=== PATIENT | female | born 1940 | race Caucasian/White ===

== ENCOUNTER → 2017-07-14 13:16 | Outpatient (CLI) | payer MEDICARE, OTHER, SELFPAY ==
--- NOTE | 2017-07-14 | DI.CT.S_ITS ---
PROCEDURE: CT HEAD/BRAIN WO CON INDICATIONS: RECENT FALL/DIZZINESS TECHNIQUE: Noncontrast 4.5 mm thick angled axial sections acquired from the foramen magnum to the vertex, with coronal and sagittal reformats. For radiation dose reduction, the following was used: automated exposure control, adjustment of mA and/or kV according to patient size. COMPARISON: None. FINDINGS: Image quality: Excellent. CSF spaces: Basal cisterns are patent. No extra-axial fluid collections. The ventricles are symmetric in size and shape. Brain: No intracranial bleeds or masses. There is cerebral volume loss for age, with resultant ventricular and sulcal prominence. There are periventricular and deep white matter chronic small vessel ischemic changes. There is intracranial internal carotid artery atherosclerosis. Skull and face: Calvarium and visualized facial bones appear intact, without suspicious lesions. Sinuses: Visualized sinuses and mastoids are clear. IMPRESSION: 1. No acute intracranial process. 2. Moderate atrophy and chronic microvascular ischemic changes. Dictated by: Tatum Maya M.D. on 07/14/2017 at 13:11 Approved by: Tatum Maya M.D. on 07/14/2017 at 13:18
== END ==
PROVIDERS: PCP Family Medicine; Visit Provider Internal Medicine
DX: R42 Dizziness and giddiness (principal)
CPT/HCPCS: 70450

== ENCOUNTER → 2017-11-18 16:18 | Outpatient (CLI) | payer MEDICARE, OTHER, SELFPAY ==
--- NOTE | 2017-11-18 | DI.MRI.S_ITS ---
PROCEDURE: MR PELVIS WO CON INDICATIONS: LOW BACK PAIN TECHNIQUE: Noncontrast coronal and axial T1 spin echo and STIR through the bony pelvis. COMPARISON: [facility] [place], CR, XR SACRUM AND COCCYX, 11/05/2017, 10:21. FINDINGS: Image quality: Excellent. Bones: Ill-defined linear low T1/high external signal intensity traverses the right and left sacral alae. Severe ill-defined T2 signal elevation within the right acetabulum and right femoral head and neck is present, as well as subchondral cyst formation within the acetabulum and femoral head, consistent with degenerative marrow edema. These findings may obscuring underlying fracture. The visualized lower lumbar spine appears normally aligned. Tendons: The gluteus medius and minimus tendons appear intact, without associated muscle atrophy. The nearby proximal iliotibial band also appears intact. The iliopsoas tendon appears intact, without adjacent bursal fluid collections or evidence for impingement syndrome. The origin of the hamstring tendon is intact at the ischial tuberosity, as well as the associated sacrotuberous ligament. The straight and reflected heads of the rectus femoris muscle origin appear intact, as well as the conjoint tendon. Soft tissues: Visualized muscles demonstrate normal bulk and internal signal. No joint effusions. No free pelvic fluid. Bladder wall thickness is normal. Genitourinary structures and bowel loops appear normal where visualized. IMPRESSION: 1. Bilateral sacral insufficiency fracture. 2. Severe right hip osteoarthritis with extensive surrounding degenerative signal. If there is clinical evidence for right hip fracture, CT may be helpful for further assessment. Dictated by: Rehan Ghosh M.D. on 11/18/2017 at 16:58 Approved by: Rehan Ghosh M.D. on 11/18/2017 at 17:01
--- NOTE | 2017-11-18 | DI.MRI.S_ITS ---
PROCEDURE: MR LUMBAR SPINE WO CON INDICATIONS: LOW BACK PAIN TECHNIQUE: Noncontrast sagittal T1 spin echo and T2 fast echo, sagittal STIR, axial T1 and T2 fast spin echo through the lumbar spine. In this patient, coronal T2-weighted images were also performed. COMPARISON: None. FINDINGS: Image quality: Excellent. Alignment and Curvature: S-shaped scoliotic curvature is seen. Grade 1 anterolisthesis is seen at the L2-L3 and L3-L4 levels. Mild grade 1 retrolisthesis is seen at L4-L5. Bone Marrow: Marrow is of normal overall signal. No acute vertebral body compression fractures. Spinal Cord: Conus medullaris terminates at the T1 level. Visualized cord demonstrates normal signal and size. Paraspinous Soft Tissues: No paravertebral masses. T12-L1: The disc height is well-preserved. Loss of disc signal is seen at this level. Mild disc bulge is seen, which is eccentric to the right. There is moderate bilateral neural foraminal narrowing seen, right worse than left. Mild central canal narrowing is seen. L1-L2: Moderate loss of disc height is seen. Loss of disc signal is seen. Endplate irregularity is seen. Mild to moderate disc bulge is seen at this level. Moderate facet joint hypertrophy is seen. There is mild to moderate right-sided and no significant left-sided neural foraminal narrowing seen. Moderate central canal narrowing is seen. L2-L3: At least moderate loss of disc height is seen on the left side. Loss of disc signal is seen. Moderate generalized disc bulge is seen. Moderate to prominent facet hypertrophy is seen at this level. There is mild to moderate left-sided and minimal right-sided neural foraminal narrowing seen. Moderate to severe central canal narrowing is seen at this level. L3-L4: There is at least moderate loss of disc height seen on the left. Loss of disc signal is seen. Along the posterior aspect of the annulus fibrosis, there is an annular fissure seen. Moderate to prominent disc bulge is seen, which is eccentric to the left. Moderate to prominent facet hypertrophy is seen. There is moderate to severe left-sided neural foraminal narrowing seen, with a mild degree of mass effect upon the exiting left L3 nerve root. No significant right-sided neural foraminal narrowing is seen. Moderate to severe central canal narrowing is seen at this level. L4-L5: Moderate to severe loss of disc height and disc signal are seen in moderate to prominent disc bulge is seen at this level. Moderate bilateral neural foraminal narrowing is seen at this level, right worse than left. Moderate central canal narrowing is seen. L5-S1: The disc height is well-preserved. Loss of disc signal is seen at this level. Mild disc bulge is seen at this level. There is an annular fissure seen posteriorly. Mild to moderate facet hypertrophy is seen. There is moderate right-sided and mild left-sided nerve narrowing seen. Mild to moderate central canal narrowing is seen. Several perineural cysts (Tarlov's cysts) can be seen, including at the T10-T11, T12-L1, L5, S1, and S2 levels. IMPRESSION: S-shaped scoliosis, with associated degenerative changes. Moderate to severe central canal narrowing is seen at L2-L3 and L3-L4. Moderate to severe left-sided neural foraminal narrowing is seen at L3-L4 level. Dictated by: Selvin Soler M.D. on 11/18/2017 at 16:56 Approved by: Selvin Soler M.D. on 11/18/2017 at 17:05
== END ==
PROVIDERS: Family Provider Family Medicine; PCP Family Medicine; Visit Provider Physical Medicine & Rehabilitation
DX: M84.48XA Pathological fracture, other site, initial encounter for fracture (principal); M48.061 Spinal stenosis, lumbar region without neurogenic claudication; M16.11 Unilateral primary osteoarthritis, right hip; M51.26 Other intervertebral disc displacement, lumbar region; M51.27 Other intervertebral disc displacement, lumbosacral region; M41.9 Scoliosis, unspecified
CPT/HCPCS: 72148; 72195

== ENCOUNTER 2018-02-26 06:05 | Inpatient (IN) | payer MEDICARE, OTHER, SELFPAY ==
[2018-02-01 13:17] VITALS: BMI 18.8
[2018-02-26] VITALS (17 sets, daily range): BP systolic 116–159; BP diastolic 69–99; PULSE 51–65; RESP 12–18; TEMP 36.3–36.9; O2SAT 87–99; BMI 18.8
--- NOTE | 2018-02-26 | DI.RAD.S_ITS ---
PROCEDURE: XR PELVIS 1-2V INDICATIONS: RIGHT TKA TECHNIQUE: Intra-operative view of the pelvis and hip acquired. COMPARISON: [facility], CR, XR HIP W PEL IF DONE RT 2V, 02/26/2018, 12:02. FINDINGS: Bones: Intraoperative devices prior to placement of arthroplasty prostheses are in expected positions. No fractures or suspicious bony lesions. Soft tissues: Overlying surgical retractors are present, along with other intraoperative changes. IMPRESSION: Right hip prosthesis in anatomic alignment. Dictated by: Marcelo See M.D. on 02/26/2018 at 13:39 Approved by: Marcelo See M.D. on 02/26/2018 at 13:40
--- NOTE | 2018-02-26 06:00 | DI.RAD.S_ITS ---
PROCEDURE: XR HIP W PEL IF DONE RT 2V INDICATIONS: prosthesis placement TECHNIQUE: 2 views of the hip were acquired. COMPARISON: [facility], , XR PELVIS 1-2V, 02/26/2018, 9:44. FINDINGS: Bones: Postoperative changes of the reticular present related to the recent right hip arthroplasty. The metallic prostatic components appear to be properly seated with no periprosthetic fracture. No suspicious osseous lesions or fractures involving the remainder of the included pelvic structures are evident. There are degenerative changes of the included lumbosacral spine, pubis symphysis, and left hip, not well characterized. Soft tissues: No suspicious soft tissue calcifications or masses. Small ovoid foci of increased attenuation are seen within the pelvis, which may represent structures within the bowel. Expected postoperative changes within the soft tissues overlying the right hip are present with areas of soft tissue edema and air. No unexpected radiopaque foreign bodies are seen. IMPRESSION: Expected post surgical changes related to a right hip arthroplasty. Dictated by: Bryan Parmar M.D. on 02/26/2018 at 11:08 Approved by: Bryan Parmar M.D. on 02/26/2018 at 11:09
[2018-02-26] MEDS: VANCOMYCIN 1,000 MG/200 ML FROZ.PIGGY 200 MG IV (06:50)
[2018-02-26] MEDS: LACTATED RINGERS 1,000 ML 42 ML IV ×2 (07:00→09:22)
[2018-02-26] MEDS: ACETAMINOPHEN 325 MG TABLET 975 MG PO ×3 (07:17→20:19)
[2018-02-26] MEDS: CELECOXIB 200 MG CAPSULE PO (07:17)
[2018-02-26] MEDS: PREGABALIN 75 MG CAPSULE PO (07:17)
--- NOTE | 2018-02-26 07:51 | PM.PREOP ---
Pre-operative Note Interval Note History & Physical reviewed/Exam performed by Physician: Yes Changes to H&P: No
--- NOTE | 2018-02-26 07:51 | PM.OP.1 ---
Operative Date/Time/Diagnoses Date of procedure: 02/26/18 Time of procedure: 07:52 Pre-op diagnosis: right hip OA Post-op diagnosis: same Procedure & Clinicians Procedure: right total hip arthroplasty Same procedure as scheduled: Yes Indications: The patient has had progressively worsening right hip pain with radiographic changes consistent with arthritis. Non-operative management has failed and the patient has requested total hip replacement. The risks, benefits and alternatives to surgery were discussed with the patient prior to proceeding. Risks discussed included, but were not limited to, failure to relieve pain, leg length discrepancy, dislocation, stiffness, infection, nerve damage, deep venous thrombosis, pulmonary embolism, stroke, coma, heart attack, permanent paralysis and , as well as the potential need for eventual revision of the prosthetic. Surgeon: Margo Brown Score Caller: Rasheeda Hurley Anesthesia Type: General and Spinal Operative Notes Findings: Severe right hip osteoarthritis, soft bone, good stability Closure Type: primary Specimen(s): none sent Implants & Drains: [employer]hew R3 56, size 6 standard anthology, +0 by 36 Estimated Blood Loss (mL): 250 Blood products transfused: none Procedure in detail: The patient was brought to the operating room. Patient was carefully positioned in the supine position. Time-out was performed and antibiotics were given. Anesthesia was induced. She was positioned in the on the table in order to allow hyperextension of the hip. Bilateral lower extremities were prepped and draped in a standard sterile fashion. An anterior right hip incision was made 1 fingerbreadth lateral to the anterior superior iliac spine and extended distally towards the greater trochanter. Dissection was carried out through skin and subcutaneous tissues. The skin and subcutaneous tissues were carefully injected with Lidocaine with epi. Superficial hemostasis was achieved. The fascia over the tensor fascia karo was defined and incised with a knife. Two Allis clamps were used to grasp the fascia. Tensor fascia karo was retracted laterally. A gelpi retractor was placed. Dissection was carried out down along the neck. The circumflex vessels were carefully identified and cauterized with the Aqua Mantis. There was good visualization of the femoral neck. A Cobra was placed superior to the neck and the gluteus fibers were carefully stripped from that superior aspect of the capsule. A 2nd retractor was placed along the inferior aspect of the neck. The rectus insertion along the capsule was partially released. A 3rd retractor that was then gently placed over the rim of the acetabulum under the rectus. Capsule was carefully incised and released from the intertrochanteric line circumferentially superior to the mid sagittal line and inferiorly to the mid sagittal line until the lesser trochanter was palpable. A tag stitch was placed both in the superior and inferior limb of the capsular insertion. Along the acetabulum capsule was also released up to the mid sagittal 12:00 position. A portion of the labrum was resected. A saw was used to perform an osteotomy at the level of the intertrochanteric line and the junction of the superior femoral neck leaving approximately 1 finger breath of residual inferior neck above the lesser trochanter. A 2nd cut was made along the femoral neck at the base of the head and a napkin ring of neck was removed. Corkscrew was placed in the femoral head and the head was removed without difficulty. Retractors were then repositioned around the acetabulum. Residual labrum was resected and additional osteophytes were removed. A reamer that was 4 mm below the templated size was placed by hand in the acetabulum and it was reamed to centralize the acetabulum. It was then reamed up to 2 under the templated size and fluoroscopy was brought in to confirm the position of the reaming and depth of reaming. I reamed 1 under the anticipated size and touched the rim with line to line reaming. A trial cup was placed and noted that it was appropriately sized and fluoroscopy confirmed position and depth. The component was open and inserted without difficulty fluoroscopic imaging was used to confirm that the cup had been adequately seated and was well positioned. Neutral poly trial liner was placed. The cup was tested and noted to be stable. Attention was then directed to the femur. The femur was gently hyperextended additional capsular release was performed as needed in order to allow adequate visualization of the proximal femur with elevation of the femur. Patient was placed in a hyperextended slightly adducted position with maximum external rotation. Box osteotome was used to check for any residual neck as well as sclerotic bone along the trochanter. [place]head pepper was placed in the femur. Additional broaching was performed. Canal finder was used to determine the alignment of the canal and position. Size 1 broach was placed by hand. The canal was then appropriately broached up to the templated size as long as there was adequate stability of the broach and serial advancement of the broach without excessive impingement. Specific attention was directed at avoiding varus attempting to direct the distal aspect of the broach more anteriorly and avoiding excessive anteversion. Trial reduction showed acceptable range of motion, good stability, no posterior impingement, muslim of leg length and appropriate lateral shuck. I also hyperflexed the hip and checked that there was no impingement anteriorly and there was good stability with flexion, abduction and internal rotation. Final neutral poly was placed without difficulty. Marcaine and Exparel were injected.. The stem was placed without difficulty. Repeat trial reduction and x-ray showed acceptable overall position, length, and no evidence of the femoral fracture. Final head was placed. Wound was meticulously irrigated with normal saline. The hip was reduced and additional Exparel and Marcaine were injected. The capsule was closed with interrupted nonabsorbable sutures. The fascia of the tensor was closed with interrupted and running Vicryl. No drain was placed. Any tensor fascia karo muscle that appeared to be contused or injured which was a minimal amount was carefully resected. Capsule around the tensor was injected with Exparel and Marcaine. The skin was closed with barbed stitches for the subcutaneous tissue and skin. We also used surgical glue. The wound was dressed sterilely. Brief Betadine soak was also used and was meticulously irrigated with normal saline. Patient was transferred to recovery room in satisfactory condition. Complications: none Condition: stable Disposition: Acute Care Plan for aftercare: The patient will be maintained on a standard total hip replacement protocol with weight bearing as tolerated and anterior hip precautions. The patient will receive Aspirin and sequential compression devices for DVT prophylaxis. The patient will be discharged home when safe for the home environment.
[2018-02-26] MEDS: CEFAZOLIN 2 GM/100 ML FROZ.PIGGY IV ×3 (07:58→23:46)
--- NOTE | 2018-02-26 09:11 | SUR.OPER ---
Supine, head on pillow, torso on pink pad positioner. Iliac crest at flex of foot end of table. Gel roll under operative hip. Both arms secured on arm boards <90 degrees abduction.
[2018-02-26] MEDS: LIDOCAINE 1% W/EPI INJ 20 ML INJ (09:23)
[2018-02-26] MEDS: BUPIVACAINE 0.25% W/ EPI VIAL 50 ML INJ (09:24)
[2018-02-26] MEDS: BUPIVACAINE LIPOSOME 266 MG/20 ML VIAL INJ (09:30)
--- NOTE | 2018-02-26 12:06 | SUR.PHASEI ---
Report called to Jerald.
--- NOTE | 2018-02-26 12:34 | SUR.PHASEI ---
Pt transferred to floor with o2. Report to Jerald. VS stable. IV saline locked. Rt hip drsg cdi. +pp x2, ble warm, pink. Belonging bag in room.
[2018-02-26] MEDS: LACTATED RINGERS 1,000 ML 125 ML IV ×2 (13:00→20:52)
[2018-02-26] MEDS: HYDROCODONE/ACET 10/325 TABLET 1.5 TAB PO (14:37)
[2018-02-26] MEDS: ONDANSETRON 4 MG/2 ML INJ IV ×2 (14:42→17:30)
[2018-02-26] MEDS: NITROFURANTOIN 50 MG CAPSULE PO ×3 (14:42→20:19)
--- NOTE | 2018-02-26 14:59 | PC.ADMIT ---
[address] [facility] Admission Note: patient admitted to 204 from pacu at 1215; awake, conversant, denies pain, s/p duramorph spinal. sensation at iliac crest and sensation to bl feet, but not to the rest of her legs. wiggles toes. pedal pulses palpable. denies nausea, mild nausea at 1445. had been tolerating fluids and chix noodle soup. The patient,Jo Ann Vargas,77 y/o, was given written information regarding hospital policies, unit procedures and contact persons. Patient's smoking status: Current some day smoker. Vital Signs - 8 hr 02/26/18 07:05 02/26/18 07:17 02/26/18 11:30 Temperature 98.4 F 98.4 F 97.6 F Pulse Rate 56 L 51 L Respiratory Rate 14 12 Blood Pressure 159/85 H 121/71 Pulse Oximetry 93 99 02/26/18 11:34 02/26/18 11:40 02/26/18 11:45 Temperature Pulse Rate 57 L 56 L 60 Respiratory Rate 12 14 16 Blood Pressure 116/69 133/76 122/73 Pulse Oximetry 93 98 95 02/26/18 11:49 02/26/18 11:59 02/26/18 12:06 Temperature Pulse Rate 63 65 Respiratory Rate 18 13 Blood Pressure 130/77 130/76 Pulse Oximetry 87 L 97 95 02/26/18 12:30 02/26/18 12:31 02/26/18 13:00 Temperature 97.3 F L 97.3 F L 97.6 F Pulse Rate 59 L 59 L 60 Respiratory Rate 14 14 16 Blood Pressure 128/76 128/76 121/76 Pulse Oximetry 97 97 95 02/26/18 13:40 02/26/18 14:23 Temperature 97.6 F 98.4 F Pulse Rate 60 62 Respiratory Rate 16 17 Blood Pressure 120/73 134/99 H Pulse Oximetry 95 92
--- NOTE | 2018-02-26 15:47 | PT.IIE ---
Current Diagnoses Other psychoactive substance use, unspecified, uncomplicated (02/26/18) Major depressive disorder, single episode, unspecified (02/26/18) Generalized anxiety disorder (02/26/18) Cerebral infarction, unspecified (02/26/18) Unilateral primary osteoarthritis, right hip (02/26/18) Other amnesia (02/26/18) Personal history of other mental and behavioral disorders (02/26/18) Surgery Performed Operation Date: 02/26/18 07:45 Actual Procedures p Total Hip Arthroplasty/Anterior Approach(Right) - Margo Brown MD Surgical History (Last Updated 02/01/18 @ 14:44 by Dot Betancourt, RN) Colostomy status (Acute ~01/2014) History of cholecystectomy (Acute) History of tonsillectomy (Acute) Medical History (Last Updated 02/01/18 @ 15:31 by Dot Betancourt, RN) Abdominal pain, chronic, epigastric (Acute) Abnormal EKG (Acute) Acute diverticulitis (Acute ~2013) Barretts esophagus (Acute) Cardiomyopathy, hypertrophic (Acute ~2013) Cataract fragments in both eyes following surgery (Acute) Chronic, continuous use of opioids (Acute) Constipation (Acute) Decubitus ulcer, buttock (Acute) Depression (Acute) Drug use disorder (Acute ~08/21/17) Emphysema lung (Acute) Essential hypertension, benign (Acute) Fractured coccyx (Acute) GERD (gastroesophageal reflux disease) (Acute) Gastritis (Acute ~07/2014) Generalized anxiety disorder (Acute) History of anxiety (Acute) History of hysterectomy (Acute) History of pneumonia (Acute) History of sepsis (Acute) Injury of head (Acute) Interstitial lung disease (Acute) Macular degeneration (Acute) Malnutrition (Acute) Memory loss (Acute) Muscle weakness (generalized) (Acute) Nausea (Acute) Neoplasm of uncertain behavior of skin (Acute) Osteoarthritis of right hip (Acute) Osteoarthritis of right lower extremity (Acute) Patellofemoral joint pain (Acute) Perforated sigmoid colon (Acute) Pleural nodule (Acute) Postmenopausal (Acute) Pulmonary fibrosis (Acute) Pulmonary hypertension (Acute) Spinal stenosis (Acute) Stroke (Acute) Tingling (Acute) Tremor (Acute) Ulcer (Acute) Vision disorder (Acute) Physical Therapy Inpatient Evaluation/Re-Eval M1 PT/OT-IP Prior Functional Status Start: 02/26/18 17:01 Freq: NEEDED Status: Active Protocol: Document 02/26/18 15:47 AB (Rec: 02/26/18 17:32 AB [id number]) Medical Review Prior Functional Status Medical History Reviewed Yes Communication able to make needs known but with confusion Mobility and Gait stated that for the last 2 months has been mostly bed bound. requires SBA with transfers using FWW when family is around but usually just stays in bed, transfers to bedside commode if needed; sits on the 4WW and propels self around the house for mobility; has a transport chair for outdoor mobility family stated that pt has unsteady gait and has h/o frequent falls at home Activities of Daily Living and IADL's requires assistance with dressing, toileting and bathing; spouse or daughter assists pt. has homehealth nurse that comes in to assist pt. Social History Household Members spouse Living Arrangements House Number of Floors (Floors) One Floor Number of Stairs To Enter/Railing? no steps to enter Home Environment Walk in Shower Home Equipment Four Wheel Walker Shower Seat with Backrest Hand Held Shower Grab Bars Near Toilet Grab Bars In Shower Additional Social History Comment has comfort height toilet M2 PT-IP Current Condition Start: 02/26/18 17:01 Freq: NEEDED Status: Active Protocol: Document 02/26/18 15:47 AB (Rec: 02/26/18 17:32 [id number]) Physical Therapy Current Condition Current Condition Evaluation Date 02/26/18 Treatment Diagnosis s/p R CHASE anterior approach; difficulties in walking Onset Date 02/26/18 Precautions Anterior Hip Precautions No Hip Extension No Hip External Rotation Weight Bearing Status Weight Bearing Status Weight Bear as Tolerated M3 PT-IP Subjective Start: 02/26/18 17:01 Freq: NEEDED Status: Active Protocol: Document 02/26/18 15:47 AB (Rec: 02/26/18 17:32 [id number]) Subjective Physical Therapy Visit Type Type Initial Evaluation Visit Start Time 15:47 Visit Stop Time 17:02 Total Visit Minutes 75 Number of REINSURANCE ANALYST Visits 0 Physical Therapy Visit Comments Patient Comments pt agreeable to do PT; family present during PT session Therapy Pain Assessment Pain When Pain Assessed At Rest Pain Present Pain Present Pain Reported Location Right Hip Intensity 5 Scale Used Numeric (1 - 10) Pain Management Techniques Timing of Activity with Medications M4 PT-IP Mobility and Gait Start: 02/26/18 17:01 Freq: NEEDED Status: Active Protocol: Document 02/26/18 15:47 AB (Rec: 02/26/18 17:32 AB [id number]) PT-Bed Mobility Assessment Supine to Sit Supine to Sit Minimal Assistance 1 Person Assistance Sit to Supine Sit to Supine Minimal Assistance 1 Person Assistance Scooting Scooting Up and Down in Bed Contact Guard Assistance PT-Transfer Assessment Sit to and From Stand Sit to and from Stand Moderate Assistance 1 Person Assistance Equipment Transfer Assistive Device Gait Belt Front Wheeled Walker Orthotic/Prosthetic Devices or Brace: No Comments Mobility Comments BP in supine: 127/73. pt completed supine to sit min A and cues. c/o dizziness but slightly resolved after a few minutes of sitting. BP: 123/ 73. pt with confusion and required max cues for all tasks. pt completed sit to stand from EOB mod A and cues. pt was able to tolerate standing using FWW for support mod A and was able to take ~ 10 steps forward/backwards and sideways towards HOB. unable to ambulate farther due to pt needing to use the toilet. pt required max A for hygiene care. pt assisted back to bed requiring min A and cues. set pt up for dinner. call light and table placed within reach. PT-Balance Assessment Sitting Balance and Reactions Static Sitting Balance Ability Fair Dynamic Sitting Balance Ability Fair Standing Balance and Reactions Static Standing Balance Ability Fair Dynamic Standing Balance Ability Poor Device Used FWW M5 PT-IP Objective Assessments Start: 02/26/18 17:01 Freq: NEEDED Status: Active Protocol: Document 02/26/18 15:47 AB (Rec: 02/26/18 17:32 AB [id number]) Orientation Orientation/Cognition Level of Alertness Confusional State Orientation Name Place Situation Safety Awareness Decreased Safety Awareness Memory Description Short Term Impaired Gross Range of Motion Lower Extremity ROM Assessment Within Functional Limits Strength Lower Extremity Strength Assessment Bilaterally Impaired Comments Strength Comments RLE: 3-/5 LLE 3+/5 Coordination Assessment Gross Coordination Gross Coordination WNL Sensation Assessment Sensation Gross Sensation WNL Muscle Tone Muscle Tone WNL Yes M6 PT-IP Treatment Start: 02/26/18 17:01 Freq: NEEDED Status: Active Protocol: Document 02/26/18 15:47 AB (Rec: 02/26/18 17:32 AB [id number]) Physical Therapy Treatment Exercises Exercises Heel Slides Education Education Provided Precautions Weight Bearing Status Post-Op Packet Safety Other Treatments Other Treatment Performed family has lots of questions regarding precautions, recovery and d/c plans. family stated that pt will be alone at home due to spouse and daughter working time study observer and wants pt to go to SNF rehab. stated that they will be in ~ 10 am tomorrow and hoping to talk to the special education case manager. will inform special education case manager. M7 PT-IP Assessment and Plan Start: 02/26/18 17:01 Freq: NEEDED Status: Active Protocol: Document 02/26/18 15:47 AB (Rec: 02/26/18 17:32 AB [id number]) PT Summary Assessment and Plan Potential Rehabilitation Potential Fair Status of Condition at Evaluation Evolving Summary Impairments Pain ROM Strength Balance Coordination Sensation Tone Cognition Bed Mobility Transfers Gait Activity Tolerance Assessment Summary pt rquiring mod A with mobility and with confusion affecting following directions and functional mobility. pt has h/o frequent falls at home and continues to be a fall risk. pt will benefit from SNF rehab to improve strength, balance and safety prior to d/ c home. Goals Bed Mobility Goal Contact Guard Assistance Transfer Goal Contact Guard Assistance Front Wheeled Walker Gait Goal Contact Guard Assistance Front Wheel Walker Gait Distance 100 Days to Meet Goals 5 Frequency of Treatment Frequency Of Treatment Twice a Day Treatment Plan Physical Therapy Treatment Plan Bed Mobility Training Transfer Training Gait Training Therapeutic Exercise Balance Retraining Post Op Education Discharge Planning Hot or Cold Pack Neuromuscular Re-ed Coordination Retraining Manual Therapy Other Recommendations and Next Treatment ambulation Focus Recommendations To Nursing Amount of Assist Needed 1 Person Assist Discharge Recommendations PT Discharge Recommendations SNF Rehab Equipment Needed for Home Before FWW if going home Discharge
--- NOTE | 2018-02-26 18:04 | PC.NURSE ---
Patient and family would like to discuss plan of care with healthcare corporate account director tomorrow 02/26/18 at 10 AM if possible. They'd like her to go to [facility] and plan for her to come back home after continued therapy.
[2018-02-26] MEDS: PANTOPRAZOLE 40 MG TABLET PO (20:19)
[2018-02-26] MEDS: LOSARTAN 25 MG TABLET PO (20:20)
[2018-02-26] MEDS: DOCUSATE 100 MG CAPSULE PO (20:20)
[2018-02-26] MEDS: ASPIRIN EC 81 MG TABLET PO (20:20)
[2018-02-26] MEDS: OXYCODONE IR 5 MG TABLET 10 MG PO (20:22)
[2018-02-27] VITALS (10 sets, daily range): BP systolic 113–148; BP diastolic 62–81; PULSE 63–71; RESP 16–20; TEMP 36.4–37.1; O2SAT 95–98
--- NOTE | 2018-02-27 04:55 | PC.NURSE ---
Pt is A and O x 4, VSS. She has used the bedpan and is eating and drinking. She denies pain and nausea. Dressing is c, d, i. + BTs, LS clear, S1, S2. Family has requested a meeting with case management to assist in finding facility for patient. Previously patient has been living with one of her children. Meeting has been requested for 99902/27/18.
[2018-02-27] MEDS: OXYCODONE IR 5 MG TABLET PO ×5 (05:19→20:11)
[2018-02-27] MEDS: SODIUM CHLORIDE 0.9% 1,000 ML 100 ML IV (05:35)
[2018-02-27] MEDS: IBUPROFEN 600 MG TABLET PO (06:49)
[2018-02-27] MEDS: diazePAM 5 MG TABLET PO (06:49)
[2018-02-27 06:53] LABS: Hematocrit 28.5 % (36-46); Hemoglobin 9.5 g/dL (12.0-16.0)
--- NOTE | 2018-02-27 10:00 | PM.PNPO.1 ---
Subjective Date Patient Seen: 02/27/18 Time Patient Seen: 10:00 Interval history: Hospital day 2, postop day 1 following right anterior total hip arthroplasty by Dr. Brown. Patient has not had physical therapy yet. His hip pain off and on through the night. Using oxycodone this morning. Patient is anticipating possible SNF as she will not have any help but during the day and will not be able to drive. Exam Vital Signs (past 8 hours): - 02/27/18 05:33 02/27/18 07:00 02/27/18 08:16 Temperature 98.3 F 98.1 F Pulse Rate 71 65 Respiratory Rate 20 16 Blood Pressure 140/81 114/62 Pulse Oximetry 95 95 95 Fraction of Inspired Oxygen 21 Oxygen Delivery Method Room Air Oxygen Flow Rate 0 Narrative Exam Narrative: Alert, oriented no acute distress resting in bed. Legs. Aquacel dressing to right anterior hip is dry without drainage or inflammation. No calf pain or swelling. Pulses symmetrical. Weakness with the right leg raise. Objective Labs Result Diagrams: 02/27/18 06:35 Labs: Laboratory Results - last 24 hr 02/27/18 06:35 Hgb 9.5 L Hct 28.5 L Assessment & Plan Post-op Postoperative Procedures Operation Date: 02/26/18 07:45 Actual Procedures Side Surgeon p Total Hip Arthroplasty/Anterior Approach Right Margo Brown MD Plan: Patient will work with PT today. Observe for improvement in function. Anticipate discharge either to SNF or possible home health PT depending on her needed function. Quality VTE Deep Vein Thrombosis/Pulmonary Embolism Present on Admission: No
[2018-02-27] MEDS: ACETAMINOPHEN 325 MG TABLET 975 MG PO ×3 (10:05→20:12)
[2018-02-27] MEDS: ASPIRIN EC 81 MG TABLET PO ×2 (10:05→20:12)
[2018-02-27] MEDS: LOSARTAN 25 MG TABLET PO ×2 (10:06→20:12)
[2018-02-27] MEDS: buPROPion XL 150 MG TAB PO (10:06)
[2018-02-27] MEDS: CHOLECALCIFEROL (VITAMIN D3) 1,000 UNIT TABLET 2000 UNIT PO (10:06)
[2018-02-27] MEDS: ESCITALOPRAM 10 MG TABLET PO (10:06)
[2018-02-27] MEDS: METOPROLOL ER 25 MG TABLET PO (10:06)
[2018-02-27] MEDS: DOCUSATE 100 MG CAPSULE PO ×2 (10:06→20:12)
[2018-02-27] MEDS: DULOXETINE 30 MG CAPSULE PO (10:06)
[2018-02-27] MEDS: NITROFURANTOIN 50 MG CAPSULE PO ×4 (10:07→20:12)
[2018-02-27] MEDS: POLYETHYLENE GLYCOL 3350 17 GM POWD.PACK PO (10:07)
[2018-02-27] MEDS: MULTIVITAMIN 1 TABLET 1 TAB PO (10:07)
[2018-02-27] MEDS: SPIRONOLACTONE 25 MG TABLET PO (10:07)
[2018-02-27] MEDS: PANTOPRAZOLE 40 MG TABLET PO ×2 (10:07→20:12)
--- NOTE | 2018-02-27 10:31 | PT.IPTN ---
Current Diagnoses Other psychoactive substance use, unspecified, uncomplicated (02/26/18) Major depressive disorder, single episode, unspecified (02/26/18) Generalized anxiety disorder (02/26/18) Cerebral infarction, unspecified (02/26/18) Unilateral primary osteoarthritis, right hip (02/26/18) Other amnesia (02/26/18) Personal history of other mental and behavioral disorders (02/26/18) Surgery Performed Operation Date: 02/26/18 07:45 Actual Procedures p Total Hip Arthroplasty/Anterior Approach(Right) - Margo Brown MD Physical Therapy Treatment Note M2 PT-IP Current Condition Start: 02/26/18 17:01 Freq: NEEDED Status: Active Protocol: Document 02/26/18 15:47 AB (Rec: 02/26/18 17:32 AB [id number]) Physical Therapy Current Condition Current Condition Evaluation Date 02/26/18 Treatment Diagnosis s/p R CHASE anterior approach; difficulties in walking Onset Date 02/26/18 Precautions Anterior Hip Precautions No Hip Extension No Hip External Rotation Weight Bearing Status Weight Bearing Status Weight Bear as Tolerated M3 PT-IP Subjective Start: 02/26/18 17:01 Freq: NEEDED Status: Active Protocol: Document 02/27/18 10:31 AB (Rec: 02/27/18 12:02 AB [id number]) Subjective Physical Therapy Visit Type Type Treatment Note Visit Start Time 10:31 Visit Stop Time 11:04 Total Visit Minutes 33 Number of COMMUNICATIONS MAINTAINER Visits 0 Physical Therapy Visit Comments Patient Comments pt with confusion. initially refusing but checked on pt again after ~ 30 min and family in room. pt agreed to get up to the chair. Therapy Pain Assessment Pain When Pain Assessed At Rest Pain Present Pain Present Pain Reported Location Right Hip Intensity 8 Scale Used Numeric (1 - 10) Pain Management Techniques Apply Cold Re-positioning Timing of Activity with Medications M4 PT-IP Mobility and Gait Start: 02/26/18 17:01 Freq: NEEDED Status: Active Protocol: Document 02/27/18 10:31 AB (Rec: 02/27/18 12:02 AB [id number]) PT-Bed Mobility Assessment Supine to Sit Supine to Sit Contact Guard Assistance PT-Transfer Assessment Sit to and From Stand Sit to and from Stand Moderate Assistance 1 Person Assistance Use of Upper Extremities Equipment Transfer Assistive Device Gait Belt Front Wheeled Walker Orthotic/Prosthetic Devices or Brace: No Transfers Transfer Technique pt ambulated to the chair using FWW Comments Mobility Comments Pt is impulsive and tries to get up by herself. pt also easily distracted and requires max cues for refocus and to complete tasks. family stated that pt has previous memory issues and impulsivity that is why they have fear of her falling at home. Gait Assessment Gait Gait Assistance Required: Minimum Assistance Moderate Assistance Distance (Feet) 15 Able to Maintain Weight Bearing Status Yes During Gait Assistive Devices Assistive Device Gait Belt Front Wheeled Walker Orthotic/Prosthetic Devices or Brace: No Gait Deviations General Gait Pattern Antalgic Decreased Stride Length Decreased Feet Clearance Factors Limiting Gait Function Factors Limiting Gait Function Decreased Activity Tolerance Decreased Strength Difficulty Following Directions Limited Range of Motion Pain Poor Balance Poor Safety Awareness Comments Gait Comments positioned pt on chair after ambulation. call light and table placed within reach. informed nurse regarding need for chair alarm for pt. left pt with family in room. M5 PT-IP Objective Assessments Start: 02/26/18 17:01 Freq: NEEDED Status: Active Protocol: Document 02/26/18 15:47 AB (Rec: 02/26/18 17:32 AB [id number]) Orientation Orientation/Cognition Level of Alertness Confusional State Orientation Name Place Situation Safety Awareness Decreased Safety Awareness Memory Description Short Term Impaired Gross Range of Motion Lower Extremity ROM Assessment Within Functional Limits Strength Lower Extremity Strength Assessment Bilaterally Impaired Comments Strength Comments RLE: 3-/5 LLE 3+/5 Coordination Assessment Gross Coordination Gross Coordination WNL Sensation Assessment Sensation Gross Sensation WNL Muscle Tone Muscle Tone WNL Yes M6 PT-IP Treatment Start: 02/26/18 17:01 Freq: NEEDED Status: Active Protocol: Document 02/27/18 10:31 AB (Rec: 02/27/18 12:02 AB [id number]) Physical Therapy Treatment Education Education Provided Precautions Weight Bearing Status Safety Other Treatments Other Treatment Performed reviewed R anterior hip precautions with pt and pt unable to recall and required education again. M7 PT-IP Assessment and Plan Start: 02/26/18 17:01 Freq: NEEDED Status: Active Protocol: Document 02/27/18 10:31 AB (Rec: 02/27/18 12:02 AB [id number]) PT Summary Assessment and Plan Potential Rehabilitation Potential Fair Summary Impairments Pain ROM Strength Balance Coordination Sensation Tone Cognition Bed Mobility Transfers Gait Activity Tolerance Progress Towards Goals Slow Progress due to Pain Slow Progress - Other Assessment Summary pt continues to require mod A with transfers and ambulation using FWW and with decrease activity tolerance. pt will require SNF rehab to improve strength and mobility prior to d/c. pt is a high fall risk due to decrease strength, standing balance and decrease safety awareness. Goals Bed Mobility Goal Contact Guard Assistance Transfer Goal Contact Guard Assistance Front Wheeled Walker Gait Goal Contact Guard Assistance Front Wheel Walker Gait Distance 100 Days to Meet Goals 5 Frequency of Treatment Frequency Of Treatment Twice a Day Treatment Plan Physical Therapy Treatment Plan Bed Mobility Training Transfer Training Gait Training Therapeutic Exercise Balance Retraining Post Op Education Discharge Planning Hot or Cold Pack Neuromuscular Re-ed Coordination Retraining Manual Therapy Other Recommendations and Next Treatment ambulation Focus Recommendations To Nursing Amount of Assist Needed 1 Person Assist Discharge Recommendations PT Discharge Recommendations SNF Rehab Equipment Needed for Home Before FWW if going home Discharge
--- NOTE | 2018-02-27 14:13 | PT.IPTN ---
Current Diagnoses Other psychoactive substance use, unspecified, uncomplicated (02/26/18) Major depressive disorder, single episode, unspecified (02/26/18) Generalized anxiety disorder (02/26/18) Cerebral infarction, unspecified (02/26/18) Unilateral primary osteoarthritis, right hip (02/26/18) Other amnesia (02/26/18) Personal history of other mental and behavioral disorders (02/26/18) Surgery Performed Operation Date: 02/26/18 07:45 Actual Procedures p Total Hip Arthroplasty/Anterior Approach(Right) - Margo Brown MD Physical Therapy Treatment Note M2 PT-IP Current Condition Start: 02/26/18 17:01 Freq: NEEDED Status: Active Protocol: Document 02/26/18 15:47 AB (Rec: 02/26/18 17:32 AB [id number]) Physical Therapy Current Condition Current Condition Evaluation Date 02/26/18 Treatment Diagnosis s/p R CHASE anterior approach; difficulties in walking Onset Date 02/26/18 Precautions Anterior Hip Precautions No Hip Extension No Hip External Rotation Weight Bearing Status Weight Bearing Status Weight Bear as Tolerated M3 PT-IP Subjective Start: 02/26/18 17:01 Freq: NEEDED Status: Active Protocol: Document 02/27/18 14:13 AB (Rec: 02/27/18 15:16 AB [email or web address]) Subjective Physical Therapy Visit Type Type Treatment Note Visit Start Time 14:13 Visit Stop Time 14:40 Total Visit Minutes 28 Number of INBOUND CALL CENTER REPRESENTATIVE Visits 0 Physical Therapy Visit Comments Patient Comments pt stated that she is wet and needs to be changed. family present during session Therapy Pain Assessment Pain When Pain Assessed During Mobility Pain Present Pain Present Pain Reported Location Right Hip Scale Used pain scale not stated M4 PT-IP Mobility and Gait Start: 02/26/18 17:01 Freq: NEEDED Status: Active Protocol: Document 02/27/18 14:13 AB (Rec: 02/27/18 15:16 AB [id number]) PT-Bed Mobility Assessment Supine to Sit Supine to Sit Standby Assistance PT-Transfer Assessment Sit to and From Stand Sit to and from Stand Contact Guard Assistance Equipment Transfer Assistive Device Gait Belt Front Wheeled Walker Orthotic/Prosthetic Devices or Brace: No Transfers Transfer Destination Toilet Transfer Technique pt ambulated to the toilet Comments Mobility Comments pt ambulated to the toilet using FWW ~ 20 ft min A and cues. required max cues to maintain R hip precautions. pt was able to maintain standing min A using FWW while assisted with brief management. pt completed sit to stand from the toilet using grab bars for assist requiring min to mod A and max cues. pt ambulated towards the sink using FWW ~ 12 ft min A and cues and was able to maintain standing min A while completing handwashing. pt ambulated towards the chair ~ 10 ft using FWW min A and cues . pt positioned on chair. call light and table placed within reach. left pt in room with family. M5 PT-IP Objective Assessments Start: 02/26/18 17:01 Freq: NEEDED Status: Active Protocol: Document 02/26/18 15:47 AB (Rec: 02/26/18 17:32 AB [id number]) Orientation Orientation/Cognition Level of Alertness Confusional State Orientation Name Place Situation Safety Awareness Decreased Safety Awareness Memory Description Short Term Impaired Gross Range of Motion Lower Extremity ROM Assessment Within Functional Limits Strength Lower Extremity Strength Assessment Bilaterally Impaired Comments Strength Comments RLE: 3-/5 LLE 3+/5 Coordination Assessment Gross Coordination Gross Coordination WNL Sensation Assessment Sensation Gross Sensation WNL Muscle Tone Muscle Tone WNL Yes M6 PT-IP Treatment Start: 02/26/18 17:01 Freq: NEEDED Status: Active Protocol: Document 02/27/18 14:13 AB (Rec: 02/27/18 15:16 AB [id number]) Physical Therapy Treatment Education Education Provided Precautions Weight Bearing Status Safety M7 PT-IP Assessment and Plan Start: 02/26/18 17:01 Freq: NEEDED Status: Active Protocol: Document 02/27/18 14:13 AB (Rec: 02/27/18 15:16 AB [id number]) PT Summary Assessment and Plan Potential Rehabilitation Potential Poor Summary Impairments Pain ROM Strength Balance Coordination Sensation Tone Cognition Bed Mobility Transfers Gait Activity Tolerance Progress Towards Goals Slow Progress due to Activity Tolerance Slow Progress - Other Assessment Summary pt progressing slowly with mobility but continues to require one person min to mod A and max cues for all tasks. pt is impulsive and requires cues for safety and to maintain R hip precautions. pt will require SNF rehab to improve strength and mobility. Goals Bed Mobility Goal Contact Guard Assistance Transfer Goal Contact Guard Assistance Front Wheeled Walker Gait Goal Contact Guard Assistance Front Wheel Walker Gait Distance 100 Days to Meet Goals 5 Frequency of Treatment Frequency Of Treatment Twice a Day Treatment Plan Physical Therapy Treatment Plan Bed Mobility Training Transfer Training Gait Training Therapeutic Exercise Balance Retraining Post Op Education Discharge Planning Hot or Cold Pack Neuromuscular Re-ed Coordination Retraining Manual Therapy Other Recommendations and Next Treatment ambulation Focus Recommendations To Nursing Amount of Assist Needed 1 Person Assist Discharge Recommendations PT Discharge Recommendations SNF Rehab Equipment Needed for Home Before FWW if going home Discharge
[2018-02-27] MEDS: ONDANSETRON 4 MG ODT PO (17:06)
[2018-02-27] MEDS: SODIUM CHLORIDE 0.9% FLUSH 10 ML IV (20:11)
[2018-02-28] VITALS (7 sets, daily range): BP systolic 99–143; BP diastolic 58–81; PULSE 58–81; RESP 18–20; TEMP 36.5–37.5; O2SAT 91–95
[2018-02-28] MEDS: OXYCODONE IR 5 MG TABLET PO ×4 (04:12→21:01)
--- NOTE | 2018-02-28 09:19 | PM.PN.1 ---
Subjective Date Patient Seen: 02/28/18 Time Patient Seen: 09:19 Interval history: She is making good progress with physical therapy. She was up in a chair much of yesterday she still continues to note some right anterior thigh pain. Her pain is well controlled with medications. Exam Vital Signs (past 8 hours): - 02/28/18 03:50 02/28/18 09:02 Temperature 97.7 F 99.5 F Pulse Rate 69 81 Respiratory Rate 18 20 Blood Pressure 124/75 143/71 H Pulse Oximetry 92 92 Fraction of Inspired Oxygen 21 Oxygen Delivery Method Room Air Oxygen Flow Rate 0 Narrative Exam Narrative: Lungs clear, abdomen benign, dry dressing in place right thigh, no drainage, minimal pain with range of motion right hip, calf soft bilaterally Objective Labs Result Diagrams: 02/27/18 06:35 Assessment & Plan Plan: Assessment/Plan Narrative: Doing well status post a right anterior total hip arthroplasty. Patient is progressing well and should be stable for discharge to a senior care facility tomorrow. Anticipated stay at senior care facility is 1 week or less. Quality VTE Deep Vein Thrombosis/Pulmonary Embolism Present on Admission: No
[2018-02-28] MEDS: ACETAMINOPHEN 325 MG TABLET 975 MG PO ×3 (09:45→21:01)
[2018-02-28] MEDS: buPROPion XL 150 MG TAB PO (09:45)
[2018-02-28] MEDS: ASPIRIN EC 81 MG TABLET PO ×2 (09:45→21:01)
[2018-02-28] MEDS: CHOLECALCIFEROL (VITAMIN D3) 1,000 UNIT TABLET 2000 UNIT PO (09:45)
[2018-02-28] MEDS: DOCUSATE 100 MG CAPSULE PO ×2 (09:45→21:02)
[2018-02-28] MEDS: DULOXETINE 30 MG CAPSULE PO (09:45)
[2018-02-28] MEDS: METOPROLOL ER 25 MG TABLET PO (09:46)
[2018-02-28] MEDS: LOSARTAN 25 MG TABLET PO ×2 (09:46→21:02)
[2018-02-28] MEDS: MULTIVITAMIN 1 TABLET 1 TAB PO (09:46)
[2018-02-28] MEDS: POLYETHYLENE GLYCOL 3350 17 GM POWD.PACK PO (09:46)
[2018-02-28] MEDS: NITROFURANTOIN 50 MG CAPSULE PO ×4 (09:46→21:01)
[2018-02-28] MEDS: SODIUM CHLORIDE 0.9% FLUSH 10 ML IV ×2 (09:46→21:01)
[2018-02-28] MEDS: PANTOPRAZOLE 40 MG TABLET PO ×2 (09:46→21:01)
[2018-02-28] MEDS: SPIRONOLACTONE 25 MG TABLET PO (09:46)
[2018-02-28] MEDS: ESCITALOPRAM 10 MG TABLET PO (10:04)
--- NOTE | 2018-02-28 12:52 | PT.IPTN ---
Current Diagnoses Other psychoactive substance use, unspecified, uncomplicated (02/26/18) Major depressive disorder, single episode, unspecified (02/26/18) Generalized anxiety disorder (02/26/18) Cerebral infarction, unspecified (02/26/18) Unilateral primary osteoarthritis, right hip (02/26/18) Other amnesia (02/26/18) Personal history of other mental and behavioral disorders (02/26/18) Surgery Performed Operation Date: 02/26/18 07:45 Actual Procedures p Total Hip Arthroplasty/Anterior Approach(Right) - Margo Brown MD Physical Therapy Treatment Note M2 PT-IP Current Condition Start: 02/26/18 17:01 Freq: NEEDED Status: Active Protocol: Document 02/26/18 15:47 AB (Rec: 02/26/18 17:32 AB [id number]) Physical Therapy Current Condition Current Condition Evaluation Date 02/26/18 Treatment Diagnosis s/p R CHASE anterior approach; difficulties in walking Onset Date 02/26/18 Precautions Anterior Hip Precautions No Hip Extension No Hip External Rotation Weight Bearing Status Weight Bearing Status Weight Bear as Tolerated M3 PT-IP Subjective Start: 02/26/18 17:01 Freq: NEEDED Status: Active Protocol: Document 02/28/18 11:00 CLB (Rec: 02/28/18 12:52 CLB [id number]) Subjective Physical Therapy Visit Type Type Patient Refusal Notes Pt refused stating she was having deep pain in hip.
--- NOTE | 2018-02-28 14:56 | PC.NURSE ---
Addendum entered by Peyton Cavanaugh R.N. 02/28/18 15:02: Pt's family was asked about her venlafaxine and they reported that she does not take this medication. Original Note: Pt has not brought her Venlafaxine into the hospital for administration. She has been advised to bring it so she does not suffer withdrawal symptoms.
--- NOTE | 2018-02-28 15:36 | PT.IPTN ---
Current Diagnoses Other psychoactive substance use, unspecified, uncomplicated (02/26/18) Major depressive disorder, single episode, unspecified (02/26/18) Generalized anxiety disorder (02/26/18) Cerebral infarction, unspecified (02/26/18) Unilateral primary osteoarthritis, right hip (02/26/18) Other amnesia (02/26/18) Personal history of other mental and behavioral disorders (02/26/18) Surgery Performed Operation Date: 02/26/18 07:45 Actual Procedures p Total Hip Arthroplasty/Anterior Approach(Right) - Margo Brown MD Physical Therapy Treatment Note M2 PT-IP Current Condition Start: 02/26/18 17:01 Freq: NEEDED Status: Active Protocol: Document 02/26/18 15:47 AB (Rec: 02/26/18 17:32 AB [id number]) Physical Therapy Current Condition Current Condition Evaluation Date 02/26/18 Treatment Diagnosis s/p R CHASE anterior approach; difficulties in walking Onset Date 02/26/18 Precautions Anterior Hip Precautions No Hip Extension No Hip External Rotation Weight Bearing Status Weight Bearing Status Weight Bear as Tolerated M3 PT-IP Subjective Start: 02/26/18 17:01 Freq: NEEDED Status: Active Protocol: Document 02/28/18 14:25 CLB (Rec: 02/28/18 15:36 CLB [id number]) Subjective Physical Therapy Visit Type Type Treatment Note Visit Start Time 14:25 Visit Stop Time 14:50 Total Visit Minutes 25 Number of COMPLAINT ANALYST Visits 1 Physical Therapy Visit Comments Patient Comments Pt willing to ambulate but stated she needed to be changed. Therapy Pain Assessment Pain When Pain Assessed During Mobility Pain Present Pain Present Pain Reported Location Right Hip Intensity 7 Scale Used Numeric (1 - 10) M4 PT-IP Mobility and Gait Start: 02/26/18 17:01 Freq: NEEDED Status: Active Protocol: Document 02/28/18 14:25 CLB (Rec: 02/28/18 15:36 CLB [id number]) PT-Transfer Assessment Sit to and From Stand Sit to and from Stand Contact Guard Assistance 1 Person Assistance Equipment Transfer Assistive Device Gait Belt Front Wheeled Walker Orthotic/Prosthetic Devices or Brace: No Transfers Transfer Destination Chair Comments Mobility Comments Pt requires Max cues for hand placement during sit<>stand. Gait Assessment Gait Gait Assistance Required: Minimum Assistance Moderate Assistance Distance (Feet) 50 Able to Maintain Weight Bearing Status Yes During Gait Assistive Devices Assistive Device Gait Belt Front Wheeled Walker Orthotic/Prosthetic Devices or Brace: No Gait Deviations General Gait Pattern Antalgic Decreased Stride Length Decreased Feet Clearance Factors Limiting Gait Function Factors Limiting Gait Function Decreased Activity Tolerance Decreased Strength Difficulty Following Directions Limited Range of Motion Pain Poor Balance Poor Safety Awareness Comments Gait Comments Pt required cues for step sequencing during forward and backward ambulation to prevent hyper extension during gait. Pt had LOB that required correction from therapist with GB. M5 PT-IP Objective Assessments Start: 02/26/18 17:01 Freq: NEEDED Status: Active Protocol: Document 02/26/18 15:47 AB (Rec: 02/26/18 17:32 AB [id number]) Orientation Orientation/Cognition Level of Alertness Confusional State Orientation Name Place Situation Safety Awareness Decreased Safety Awareness Memory Description Short Term Impaired Gross Range of Motion Lower Extremity ROM Assessment Within Functional Limits Strength Lower Extremity Strength Assessment Bilaterally Impaired Comments Strength Comments RLE: 3-/5 LLE 3+/5 Coordination Assessment Gross Coordination Gross Coordination WNL Sensation Assessment Sensation Gross Sensation WNL Muscle Tone Muscle Tone WNL Yes M6 PT-IP Treatment Start: 02/26/18 17:01 Freq: NEEDED Status: Active Protocol: Document 02/28/18 14:25 CLB (Rec: 02/28/18 15:36 CLB [id number]) Physical Therapy Treatment Exercises Exercises Ankle Pumps Gluteal Sets Quad Sets Education Education Provided Precautions Weight Bearing Status Safety Other Treatments Other Treatment Performed reviewed hip precautions M7 PT-IP Assessment and Plan Start: 02/26/18 17:01 Freq: NEEDED Status: Active Protocol: Document 02/28/18 14:25 CLB (Rec: 02/28/18 15:36 CLB [id number]) PT Summary Assessment and Plan Summary Impairments Pain ROM Strength Balance Coordination Sensation Tone Cognition Bed Mobility Transfers Gait Activity Tolerance Progress Towards Goals Slow Progress due to Activity Tolerance Slow Progress - Other Assessment Summary Pt could not recall her R Anterior hip precautions. Pt requried Max cues for sit<> stand and sequencing steps to prevent hyper extension of RLE . Pt had LOB during ambulation that required correcting with GB. Goals Bed Mobility Goal Contact Guard Assistance Transfer Goal Contact Guard Assistance Front Wheeled Walker Gait Goal Contact Guard Assistance Front Wheel Walker Gait Distance 100 Days to Meet Goals 5 Frequency of Treatment Frequency Of Treatment Twice a Day Treatment Plan Physical Therapy Treatment Plan Bed Mobility Training Transfer Training Gait Training Therapeutic Exercise Balance Retraining Post Op Education Discharge Planning Hot or Cold Pack Neuromuscular Re-ed Coordination Retraining Manual Therapy Other Recommendations and Next Treatment ambulation Focus Recommendations To Nursing Amount of Assist Needed 1 Person Assist Discharge Recommendations PT Discharge Recommendations SNF Rehab Equipment Needed for Home Before FWW if going home Discharge
[2018-02-28] MEDS: IBUPROFEN 600 MG TABLET PO (21:01)
[2018-03-01 03:00] VITALS: BP 130/78; PULSE 63; RESP 18; TEMP 36.6; O2SAT 92
[2018-03-01] MEDS: IBUPROFEN 600 MG TABLET PO ×2 (03:38→10:15)
[2018-03-01] MEDS: OXYCODONE IR 5 MG TABLET PO ×3 (03:38→13:27)
--- NOTE | 2018-03-01 07:27 | PM.DS.1 ---
History of Present Illness Date Patient Seen: 03/01/18 Time Patient Seen: 07:23 Chief complaint: [id number] Narrative: Patient seen bedside status post anterior right CHASE postop day 3. Patient is doing well, her pain is controlled. She is ready to be discharged to a senior care facility today. She denies chest pain shortness of breath cough and calf pain. Discharge Providers Date of admission: 02/26/18 06:05 Primary care physician: Colby Gonzalez Consults: 02/26/18 06:00 Consult to Anesthesiology Routine Comment: Consulting Provider: Anesthesiologist Reason for consultation: Regional block for post operative pain control 02/26/18 12:31 Consult to Discharge Planning Routine Comment: Consult to Physical Therapy Evaluate & Treat Comment: anterior Physician Instructions: post op CHASE protocol Consult to Respiratory Therapy Evaluate & Treat Comment: Physician Instructions: Evaluate and treat 02/26/18 14:23 Consult to Respiratory Therapy Evaluate & Treat Comment: Physician Instructions: Evaluate and treat 02/01/18 14:58 Consult to Anesthesiology Routine Comment: Surg Request Consulting Provider: Anesthesiologist Reason for consultation: Pulmonary Consult to Dowel Sticker Operator Routine Comment: Plans rehab post-op Discharge provider: Rasheeda Hurley PA-C Discharge Date: 03/01/18 Summary Discharge Diagnosis: Right hip osteoarthritis Hospital Course: Patient was admitted to the hospital status post right anterior total hip arthroplasty with Dr. Brown on 02/26/2018. Patient tolerated procedure well no major complications. She was transitioned to the acute care floor where she was placed on the standard joint replacement pathway and protocol. She was seen by Physical therapy who recommended she be discharged to senior care facility. She is stable ready for discharge on 03/01/2018. Status at Discharge Cognitive/behavioral status at discharge: Alert and oriented x3 Functional status at discharge: uses cane/walker Overall status at discharge: patient is progressing back to baseline Time Spent with Patient Less than 30 minutes Exam Vital Signs (past 8 hours): - 02/28/18 23:30 03/01/18 03:00 Temperature 98 F 97.9 F Pulse Rate 63 63 Respiratory Rate 18 18 Blood Pressure 133/81 130/78 Pulse Oximetry 95 92 Fraction of Inspired Oxygen 21 Oxygen Delivery Method Room Air Oxygen Flow Rate 0 Narrative Exam Narrative: Well-developed well-nourished no acute distress alert oriented x3. Dressing on the anterior right hip is clean dry and intact. No signs of drainage or erythema. Minimal generalized swelling around the area. Calves are soft and compressible. Bilateral lower extremities are neurovascularly intact. Objective Labs Result Diagrams: 02/27/18 06:35 Discharge Plan Discharge Plan Patient Disposition: SNF Transfer to: [facility] Under care of provider: Facility provider I certify the postop hospital senior care care is medically necessary on a continuing basis for any conditions for which he/ she received care during this hospitalization.: Yes The receiving facility has agreed to accept transfer and provide medical treatment.: Yes Discharge Med Rec/Prescriptions Prescriptions: New acetaminophen 325 mg Tablet 975 mg PO TID Qty: 0 RF: 0 aspirin 81 mg Tablet,Delayed Release (Dr/Ec) 81 mg PO BID Qty: 0 RF: 0 docusate sodium 100 mg Capsule 100 mg PO BID Qty: 0 RF: 0 ibuprofen 600 mg Tablet 600 mg PO Q6HR PRN (Reason: Pain, Mild (1-3)) Qty: 0 RF: 0 oxycodone 5 mg Tablet 5 mg PO Q4H PRN (Reason: Pain, Moderate (4-6)) Qty: 15 RF: 0 Venlafaxine [Venlafaxine] 25 mg PO BID Qty: 0 RF: 0 Continue losartan [Cozaar] 50 MG tablet 50 mg PO QDAY Qty: 0 RF: 0 metoprolol succinate [Toprol XL] 25 MG tablet extended release 24 hr 25 mg PO DAILY Qty: 0 RF: 0 multivitamin Tablet 1 tab PO DAILY RF: 0 spironolactone 25 mg Tablet 25 mg PO DAILY RF: 0 duloxetine 30 mg Capsule,Delayed Release(Dr/Ec) 30 mg PO DAILY RF: 0 cholecalciferol (vitamin D3) 2,000 unit Capsule 2,000 unit PO DAILY RF: 0 bupropion HCl 150 mg PO DAILY RF: 0 guaifenesin [Mucinex] 600 mg Tablet Extended Release 12hr 600 mg PO Q12H PRN (Reason: Cough) RF: 0 diazepam 5 mg Tablet 5 mg PO BID PRN (Reason: Anxiety) RF: 0 escitalopram oxalate [Lexapro] 10 mg Tablet 10 mg PO DAILY RF: 0 polyethylene glycol 3350 [Miralax] 17 gram/dose Powder 17 g PO DAILY RF: 0 nitrofurantoin macrocrystal 50 mg Capsule 50 mg PO QID RF: 0 losartan 25 mg Tablet 25 mg PO BID RF: 0 omeprazole magnesium [Prilosec OTC] 20 mg Tablet,Delayed Release (Dr/Ec) 40 mg PO BID RF: 0 Discontinued hydrocodone-acetaminophen [[place]] 10-325 mg Tablet 1.5 tab PO Q4H PRN (Reason: Pain) RF: 0 Follow up/Referrals: Colby Gonzalez [Primary Care Provider] - Discharge Health Status Precautions: [place] Provider Discharge Instructions Diet: Diet as Tolerated Activity: Weightbearing as tolerated, follow anterior hip precautions. Cold/Heat Therapy: Apply ice to surgical site 20 minutes at a time as needed for swelling. Skin/Wound/Dressing Care Report to your healthcare provider any signs of infection, such as:: chills, fever, night sweats, increased pain, unusual drainage and unusual redness Dressing: Keep Aquacel dressing clean, dry, and intact. May shower with dressing in place. No soaking. Special Rehabilitation Services Reason for rehabilitation: Post-operative therapy Rehab type: Physical therapy and Occupational therapy Visit Report/Discharge Packet Instructions: DI for Hip Replacement Discharge Data Primary Care Provider: Colby Gonzalez Attending Provider: Margo Brown Admit Date/Time: 02/26/18 06:05 Quality VTE Deep Vein Thrombosis/Pulmonary Embolism Present on Admission: No
[2018-03-01 09:08] VITALS: BP 148/92; PULSE 64; RESP 16; TEMP 36.8; O2SAT 95
[2018-03-01] MEDS: ACETAMINOPHEN 325 MG TABLET 975 MG PO (10:12)
[2018-03-01] MEDS: CHOLECALCIFEROL (VITAMIN D3) 1,000 UNIT TABLET 2000 UNIT PO (10:13)
[2018-03-01] MEDS: ASPIRIN EC 81 MG TABLET PO (10:13)
[2018-03-01] MEDS: DULOXETINE 30 MG CAPSULE PO (10:13)
[2018-03-01] MEDS: buPROPion XL 150 MG TAB PO (10:13)
[2018-03-01] MEDS: DOCUSATE 100 MG CAPSULE PO (10:13)
[2018-03-01] MEDS: SODIUM CHLORIDE 0.9% FLUSH 10 ML IV (10:14)
[2018-03-01] MEDS: LOSARTAN 25 MG TABLET PO (10:14)
[2018-03-01] MEDS: METOPROLOL ER 25 MG TABLET PO (10:14)
[2018-03-01] MEDS: ESCITALOPRAM 10 MG TABLET PO (10:14)
[2018-03-01] MEDS: NITROFURANTOIN 50 MG CAPSULE PO (10:14)
[2018-03-01] MEDS: MULTIVITAMIN 1 TABLET 1 TAB PO (10:14)
[2018-03-01] MEDS: PANTOPRAZOLE 40 MG TABLET PO (10:14)
[2018-03-01] MEDS: SPIRONOLACTONE 25 MG TABLET PO (10:15)
--- NOTE | 2018-03-01 13:24 | PT.IPTN ---
Current Diagnoses Other psychoactive substance use, unspecified, uncomplicated (02/26/18) Major depressive disorder, single episode, unspecified (02/26/18) Generalized anxiety disorder (02/26/18) Cerebral infarction, unspecified (02/26/18) Unilateral primary osteoarthritis, right hip (02/26/18) Other amnesia (02/26/18) Personal history of other mental and behavioral disorders (02/26/18) Surgery Performed Operation Date: 02/26/18 07:45 Actual Procedures p Total Hip Arthroplasty/Anterior Approach(Right) - Margo Brown MD Physical Therapy Treatment Note M2 PT-IP Current Condition Start: 02/26/18 17:01 Freq: NEEDED Status: Active Protocol: Document 02/26/18 15:47 AB (Rec: 02/26/18 17:32 AB [id number]) Physical Therapy Current Condition Current Condition Evaluation Date 02/26/18 Treatment Diagnosis s/p R CHASE anterior approach; difficulties in walking Onset Date 02/26/18 Precautions Anterior Hip Precautions No Hip Extension No Hip External Rotation Weight Bearing Status Weight Bearing Status Weight Bear as Tolerated M3 PT-IP Subjective Start: 02/26/18 17:01 Freq: NEEDED Status: Active Protocol: Document 03/01/18 09:55 RS (Rec: 03/01/18 13:23 RS [id number]) Subjective Physical Therapy Visit Type Type Treatment Note Visit Start Time 09:07 Visit Stop Time 09:55 Total Visit Minutes 48 Physical Therapy Visit Comments Patient Comments Pt reports not sleeping well last night, didn't fall asleep until 3am. Therapy Pain Assessment Pain When Pain Assessed During Mobility Pain Present Pain Present Pain Reported M4 PT-IP Mobility and Gait Start: 02/26/18 17:01 Freq: NEEDED Status: Active Protocol: Document 03/01/18 09:55 RS (Rec: 03/01/18 13:23 RS [id number]) PT-Bed Mobility Assessment Supine to Sit Supine to Sit Standby Assistance Sit to Supine Sit to Supine Minimal Assistance Scooting Scooting to Edge of Bed Standby Assistance PT-Transfer Assessment Sit to and From Stand Sit to and from Stand Contact Guard Assistance 1 Person Assistance Equipment Transfer Assistive Device Gait Belt Front Wheeled Walker Transfers Transfer Destination Bed Chair Bedside Commode Transfer Technique Stand Step Pivot Transfer Ability Level of Assist Contact Guard Assistance Comments Mobility Comments Pt continues to need verbal cues for hand placement and anterior hip precautions. Gait Assessment Gait Gait Assistance Required: Contact Guard Assist Distance (Feet) 75 Assistive Devices Assistive Device Gait Belt Front Wheeled Walker Gait Deviations General Gait Pattern Antalgic Decreased Stride Length Decreased Feet Clearance Factors Limiting Gait Function Factors Limiting Gait Function Decreased Activity Tolerance Decreased Strength Difficulty Following Directions Limited Range of Motion Pain Poor Balance Poor Safety Awareness Comments Gait Comments Pt continues to need verbal cues on walking pattern necessary to maintain anterior hip precautions. Pt tried to extend R hip several times t/o gait activity, minimal carryover of the education provided. Stair Climbing Assessment Comments Stair Climbing Comments not tested M5 PT-IP Objective Assessments Start: 02/26/18 17:01 Freq: NEEDED Status: Active Protocol: Document 02/26/18 15:47 AB (Rec: 02/26/18 17:32 AB [id number]) Orientation Orientation/Cognition Level of Alertness Confusional State Orientation Name Place Situation Safety Awareness Decreased Safety Awareness Memory Description Short Term Impaired Gross Range of Motion Lower Extremity ROM Assessment Within Functional Limits Strength Lower Extremity Strength Assessment Bilaterally Impaired Comments Strength Comments RLE: 3-/5 LLE 3+/5 Coordination Assessment Gross Coordination Gross Coordination WNL Sensation Assessment Sensation Gross Sensation WNL Muscle Tone Muscle Tone WNL Yes M6 PT-IP Treatment Start: 02/26/18 17:01 Freq: NEEDED Status: Active Protocol: Document 02/28/18 14:25 CLB (Rec: 02/28/18 15:36 CLB [id number]) Physical Therapy Treatment Exercises Exercises Ankle Pumps Gluteal Sets Quad Sets Education Education Provided Precautions Weight Bearing Status Safety Other Treatments Other Treatment Performed reviewed hip precautions M7 PT-IP Assessment and Plan Start: 02/26/18 17:01 Freq: NEEDED Status: Active Protocol: Document 03/01/18 09:55 RS (Rec: 03/01/18 13:23 RS [id number]) PT Summary Assessment and Plan Potential Rehabilitation Potential Fair Status of Condition at Evaluation Stable Summary Impairments Pain ROM Strength Balance Coordination Sensation Tone Cognition Bed Mobility Transfers Gait Activity Tolerance Progress Towards Goals Slow Progress due to Activity Tolerance Slow Progress - Other Assessment Summary Pt still unable to recall R anterior hip precautions and needs constant verbal cues for mobility techniques. Pt was able to walk further this session. Pt also remains slightly impulsive and is unsafe to return home at this time. Continue to recommend SNF rehab once medically ready . Goals Bed Mobility Goal Standby Assistance Transfer Goal Standby Assistance Front Wheeled Walker Gait Goal Standby Assistance Front Wheel Walker Gait Distance 150 Days to Meet Goals 3 Frequency of Treatment Frequency Of Treatment Twice a Day Treatment Plan Physical Therapy Treatment Plan Bed Mobility Training Transfer Training Gait Training Therapeutic Exercise Balance Retraining Post Op Education Discharge Planning Hot or Cold Pack Neuromuscular Re-ed Coordination Retraining Manual Therapy Other Recommendations and Next Treatment ambulation, reiterate hip Focus precautions Recommendations To Nursing Amount of Assist Needed 1 Person Assist Discharge Recommendations PT Discharge Recommendations SNF Rehab
--- NOTE | 2018-03-01 13:43 | PT.IPTN ---
Current Diagnoses Other psychoactive substance use, unspecified, uncomplicated (02/26/18) Major depressive disorder, single episode, unspecified (02/26/18) Generalized anxiety disorder (02/26/18) Cerebral infarction, unspecified (02/26/18) Unilateral primary osteoarthritis, right hip (02/26/18) Other amnesia (02/26/18) Personal history of other mental and behavioral disorders (02/26/18) Surgery Performed Operation Date: 02/26/18 07:45 Actual Procedures p Total Hip Arthroplasty/Anterior Approach(Right) - Margo Brown MD Physical Therapy Treatment Note M2 PT-IP Current Condition Start: 02/26/18 17:01 Freq: NEEDED Status: Discharge Protocol: Document 02/26/18 15:47 AB (Rec: 02/26/18 17:32 AB [id number]) Physical Therapy Current Condition Current Condition Evaluation Date 02/26/18 Treatment Diagnosis s/p R CHASE anterior approach; difficulties in walking Onset Date 02/26/18 Precautions Anterior Hip Precautions No Hip Extension No Hip External Rotation Weight Bearing Status Weight Bearing Status Weight Bear as Tolerated M3 PT-IP Subjective Start: 02/26/18 17:01 Freq: NEEDED Status: Discharge Protocol: Document 03/01/18 13:43 RS (Rec: 03/01/18 15:52 RS [email or web address]) Subjective Physical Therapy Visit Type Type Treatment Note Visit Start Time 13:20 Visit Stop Time 13:43 Total Visit Minutes 23 Physical Therapy Visit Comments Patient Comments Pt reports she's going to [facility] later today. M4 PT-IP Mobility and Gait Start: 02/26/18 17:01 Freq: NEEDED Status: Discharge Protocol: Document 03/01/18 13:43 RS (Rec: 03/01/18 15:52 RS [id number]) Gait Assessment Gait Gait Assistance Required: Contact Guard Assist Distance (Feet) 100 Assistive Devices Assistive Device Gait Belt Front Wheeled Walker Gait Deviations General Gait Pattern Antalgic Decreased Stride Length Decreased Feet Clearance Factors Limiting Gait Function Factors Limiting Gait Function Decreased Activity Tolerance Decreased Strength Difficulty Following Directions Limited Range of Motion Pain Poor Balance Poor Safety Awareness M5 PT-IP Objective Assessments Start: 02/26/18 17:01 Freq: NEEDED Status: Discharge Protocol: Document 02/26/18 15:47 AB (Rec: 02/26/18 17:32 AB [id number]) Orientation Orientation/Cognition Level of Alertness Confusional State Orientation Name Place Situation Safety Awareness Decreased Safety Awareness Memory Description Short Term Impaired Gross Range of Motion Lower Extremity ROM Assessment Within Functional Limits Strength Lower Extremity Strength Assessment Bilaterally Impaired Comments Strength Comments RLE: 3-/5 LLE 3+/5 Coordination Assessment Gross Coordination Gross Coordination WNL Sensation Assessment Sensation Gross Sensation WNL Muscle Tone Muscle Tone WNL Yes M6 PT-IP Treatment Start: 02/26/18 17:01 Freq: NEEDED Status: Discharge Protocol: Document 02/28/18 14:25 CLB (Rec: 02/28/18 15:36 CLB [id number]) Physical Therapy Treatment Exercises Exercises Ankle Pumps Gluteal Sets Quad Sets Education Education Provided Precautions Weight Bearing Status Safety Other Treatments Other Treatment Performed reviewed hip precautions M7 PT-IP Assessment and Plan Start: 02/26/18 17:01 Freq: NEEDED Status: Discharge Protocol: Document 03/01/18 13:43 RS (Rec: 03/01/18 15:52 RS [id number]) PT Summary Assessment and Plan Summary Assessment Summary Pt again able to walk even a little bit further than earlier today. Pt still below reported functional baseline and is not safe to discharge home, recommend SNF rehab when medically ready. Anticipate d /c to [facility] later today. Goals Days to Meet Goals 0 Frequency of Treatment Frequency Of Treatment Discharge Recommendations To Nursing Amount of Assist Needed 1 Person Assist Discharge Recommendations PT Discharge Recommendations SNF Rehab
--- NOTE | 2018-03-01 13:55 | CM.DPC ---
DCP/continued: Reviewed chart. Per Ortho/PA patient okay to discharge to SNF today. Placed call to Stephanie at [facility] re: acceptance. Stephanie reports that they can accept today. Scheduled picket [employer] time is 1:30pm. Orders completed and faxed to [facility]. [facility] completed as well. Met with patient to confirm plan. Patient aware and agreeable to plan. JENNIFER signed. Per patient's request placed call to patient's daughter María # [phone]. Daughter reports that she will meet patient at [facility] at approximately 3:00pm. RN updated. No additional needs identified. P: [facility] today. LYNDSEY Espinoza
--- NOTE | 2018-03-01 14:43 | PC.NURSE ---
Discharge No PIV in pt so it was out prior to d/c. Pt states she took all belongings with her including phone, ipad and chargers. Report called to Erin at [facility]. pt states oxy and ibuprofen help keep her pain under control, from 09/25 down to 07/26. up with [facility] to w/c for d/c. left with transporter and family member.
== END 2018-03-01 13:50 | DRG 470 ==
PROVIDERS: Admitting Provider Orthopaedic Surgery; Family Provider Family Medicine; PCP Internal Medicine; Visit Provider Orthopaedic Surgery
PROC: 0SR902Z Replacement of Right Hip Joint with Metal on Polyethylene Synthetic Substitute, Open Approach (ICD-10-PCS; CPT 27130; principal; 2018-02-26 07:45)
DX: M16.11 Unilateral primary osteoarthritis, right hip (principal); J84.10 Pulmonary fibrosis, unspecified; I10 Essential (primary) hypertension; F32.9 Major depressive disorder, single episode, unspecified; Z87.891 Personal history of nicotine dependence; M85.851 Other specified disorders of bone density and structure, right thigh
CPT/HCPCS: 36415; 72170; 73502; 76000; 85014; 85018; 94762; 97110; 97116; 97162; 97530; 99406; C1776; C9290; J0171; J0690; J1100; J2250; J2274; J2405; J2704; J3010; J3370

== ENCOUNTER → 2020-03-24 09:19 | Outpatient (CLI) | payer MEDICARE, OTHER, SELFPAY ==
[2018-02-26 12:36] VITALS: BMI 18.8
[2020-03-24 11:39] LABS: COVID19 -Nasal RAPID Negative (Negative)
== END ==
PROVIDERS: PCP Family Medicine; Visit Provider Nurse Practitioner Family
DX: Z01.812 Encounter for preprocedural laboratory examination (principal); Z20.822 Contact with and (suspected) exposure to COVID-19
CPT/HCPCS: 87635; C9803